=== PATIENT | female | born 1965 | race Caucasian/White ===

== ENCOUNTER 2022-06-30 11:38 | Outpatient (CLI) | payer BC | END 2022-06-30 11:39 | disposition home or self-care (01) | LOC: CSHMAMMO 11:38 | PROVIDERS: ATTEND Family Medicine Sports Medicine | DX: Z12.31 Encounter for screening mammogram for malignant neoplasm of breast (principal) | CPT/HCPCS: 77063; 77067 ==

== ENCOUNTER 2022-09-05 10:50 | Outpatient (CLI) | payer BC | END 2022-09-05 10:51 | disposition home or self-care (01) | LOC: CSHLAB 10:50 | PROVIDERS: ATTEND Family Medicine Sports Medicine | DX: E03.8 Other specified hypothyroidism (principal) | CPT/HCPCS: 36415; 84443 ==

== ENCOUNTER 2023-08-01 | Outpatient (CLI) | payer OTHER | END 2023-08-01 08:27 | disposition home or self-care (01) | DX: Z12.31 Encounter for screening mammogram for malignant neoplasm of breast (principal) ==